=== PATIENT | male | born 1940 | race Caucasian/White ===

== ENCOUNTER 2023-10-28 21:08 | Inpatient (IN) | payer OTHER, MEDICARE ==
[2023-10-28 23:46] LABS: Protime INR 1.16
[2023-10-28 23:49] LABS: Albumin 3.2 g/dL (3.4-5.0); Bilirubin Total 0.7 mg/dL (0.2-1.0); Potassium 3.8 mEq/L (3.5-5.1); Protein, Total 9.2 g/dL (6.4-8.2)
[2023-10-28 23:54] LABS: Absolute Lymphocytes (CBC) 1.4 K/uL (0.7-4.9); Hematocrit 37.2 % (39.6-49.0); MCV 97.9 fL (80-100); Platelets 232 thou/uL (152-406)
--- NOTE | 2023-10-29 00:10 | ER ---
Nurse's Notes [facility] Name: Alexey Morales Age: 83 yrs Sex: Male : 1940 Arrival Date: 10/28/2023 Time: 21:08 Bed 15 Private MD: Diagnosis: Cellulitis of right upper limb Presentation: 10/28 21:21 Chief complaint: Patient states: he was scratched on his right arm by a cat on Friday ap3 10/25/23. patient was evaluated yesterday at an urgent care where he received Rocephin, TDAP and a prescription for doxycycline. patient has been unable to get the doxycycline due to it not being delivered to his home until tomorrow. Coronavirus screen: At this time, the client does not indicate any symptoms associated with coronavirus-19. Ebola Screen: No symptoms or risks identified at this time. Initial Sepsis Screen: Does the patient meet any 2 criteria? No. Patient's initial sepsis screen is negative. Does the patient have a suspected source of infection? No. Patient's initial sepsis screen is negative. Risk Assessment: Do you want to hurt yourself or someone else? Patient reports no desire to harm self or others. Onset of symptoms was October 25, 2023. 21:21 Method Of Arrival: Ambulatory ap3 21:21 Acuity: MURTAZA 3 ap3 Triage Assessment: 21:25 General: Appears in no apparent distress. Behavior is calm, cooperative, appropriate ap3 for age. Pain: Complains of pain in dorsal aspect of right forearm Pain currently is 7 out of 10 on a pain scale. Pain began gradually. Neuro: Level of Consciousness is awake, alert, obeys commands, Oriented to person, place, time, situation, Appropriate for age. Cardiovascular: Patient's skin is warm and dry. Respiratory: Airway is patent Respiratory effort is even, unlabored, Respiratory pattern is regular, symmetrical. Derm: Wound noted dorsal aspect of right forearm. 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 - Social history:: Smoking status: Patient denies any tobacco usage or history of. Screenin:26 Abuse screen: Denies threats or abuse. Nutritional screening: No deficits noted. ap3 Tuberculosis screening: No symptoms or risk factors identified. 10/29 00:00 [facility] ED Fall Risk Assessment (Adult) History of falling in the last 3 months, jw7 including since admission No falls in past 3 months (0 pts) Score/Fall Risk Level 0 - 2 = Low Risk Oriented to surroundings, Maintained a safe environment, Educated pt \T\ family on fall prevention, incl call for assistance when getting out of bed. Assessment: 00:00 General: Appears in no apparent distress. comfortable, Behavior is calm, cooperative. jw7 Pain: Complains of pain in right arm Pain does not radiate. Pain currently is 4 out of 10 on a pain scale. Quality of pain is described as aching, stinging, Pain began gradually, Is continuous. Neuro: Level of Consciousness is awake, alert, obeys commands, Oriented to person, place, time, situation. Cardiovascular: Capillary refill < 3 seconds Clubbing of nail beds is absent JVD is absent Patient's skin is warm and dry. Respiratory: Airway is patent Trachea midline Respiratory effort is even, unlabored, Respiratory pattern is regular, symmetrical. GI: No deficits noted. No signs and/or symptoms were reported involving the gastrointestinal system. : No deficits noted. No signs and/or symptoms were reported regarding the genitourinary system. EENT: No deficits noted. No signs and/or symptoms were reported regarding the EENT system. Derm: Skin is intact, is healthy with good turgor, Skin is dry, Skin is normal, Skin temperature is warm. Musculoskeletal: Circulation, motion, and sensation intact. Range of motion: intact in all extremities. 01:00 Reassessment: Patient appears in no apparent distress at this time. No changes from jw7 previously documented assessment. Patient and/or family updated on plan of care and expected duration. Pain level reassessed. Patient is alert, oriented x 3, equal unlabored respirations, skin warm/dry/pink. 02:00 General: Pt Admitted, See [facility] Documentation. jw7 Vital Signs: 10/28 21:21 BP 131 / 66; Pulse 95; Resp 17; Temp 98.7; Pulse Ox 98% on R/A; Weight 100.7 kg; Height ap3 5 ft. 10 in. ; Pain 7/; 10/29 01:00 BP 118 / 67; Pulse 72; Resp 16 S; Pulse Ox 97% on R/A; jw7 02:00 BP 116 / 67; Pulse 70; Resp 17 S; Pulse Ox 96% on R/A; jw7 10/28 21:21 Body Mass Index 31.85 (100.70 kg, 177.8 cm) ap3 10/28 21:21 Pain Scale: Adult ap3 ED Course: 10/28 21:11 Patient arrived in ED. kj1 21:22 Cami Licona FNP-C [facility]. kb 21:22 Montrell De La Torre MD is Attending Physician. kb 21:23 Triage completed. ap3 21:26 Arm band placed on left wrist. ap3 23:22 Dottie Florence, RN is Primary Nurse. jw7 23:24 Patient has correct armband on for positive identification. Bed in low position. Call ap3 light in reach. Side rails up X 1. 23:24 Inserted saline lock: 22 gauge in left antecubital area, using aseptic technique. Blood ap3 collected. 23:24 Initial lab(s) drawn, by me, sent to lab. First set of blood cultures drawn by me. ap3 23:24 CBC with Diff Sent. ap3 23:24 CMP Sent. ap3 23:24 Lactate w/ 2H reflex if indic. Sent. ap3 23:24 Protime (+inr) Sent. ap3 23:24 Ptt, Activated Sent. ap3 10/29 00:10 Meng Duncan MD is Hospitalizing Provider. kb 01:57 Inserted saline lock: 22 gauge in left forearm, using aseptic technique. jw7 01:58 Second set of blood cultures drawn. jw7 03:35 Provided Education on: need for admit. jw7 03:35 No provider procedures requiring assistance completed. Patient admitted, IV remains in jw7 place. Administered Medications: :57 Drug: vancoMYCIN IVPB 1 grams IVPB once over 2 hrs Route: IVPB; Infused Over: 2 hrs; jw7 Site: left forearm; Medication: 03:35 VIS not applicable for this client. jw7 Outcome: 00:10 Decision to Hospitalize by Provider. kb 03:35 Admitted to ER Hold. Please see [facility] for further documentation. jw7 03:35 Condition: stable 03:35 Instructed on the need for admit, Demonstrated understanding of instructions, 11:34 Patient left the ED. db Signatures: Cami Licona, Cheri Veliz RN RN ap3 Jasmin Licona kj1 Dottie Florence RN RN jw7 Makayla Harrington RN RN db
--- NOTE | 2023-10-29 00:10 | EDPHYS ---
Physician Documentation [facility] Name: Alexey Moralse Age: 83 yrs Sex: Male : 1940 Arrival Date: 10/28/2023 Time: 21:08 Bed 15 Private MD: ED Physician Montrell De La Torre HPI: 10/28 22:16 This 83 yrs old Male presents to ER via Ambulatory with complaints of CAT SCRATCH kb POSSIBLE INFECTION. 22:16 Patient is a 83-year-old male who presents for redness and swelling to right forearm to kb hand. States he was scratched by cat 4 days ago and the symptoms started after that. Reports low-grade fever prior to arrival.. 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 - Social history:: Smoking status: Patient denies any tobacco usage or history of. ROS: 22:16 Respiratory: Negative for shortness of breath, cough, wheezing, and pleuritic chest kb pain, 22:16 Constitutional: Positive for fever, 22:16 Skin: Positive for erythema, swelling, of the right hand and right forearm, 22:16 All other systems are negative, Exam: 22:16 Constitutional: This is a well developed, well nourished patient who is awake, alert, kb and in no acute distress. Head/Face: Normocephalic, atraumatic. ENT: Moist Mucous membranes Cardiovascular: Regular rate Respiratory: Respirations even and unlabored. No increased work of breathing. Talking in full sentences MS/ Extremity: Pulses equal, no cyanosis. Neurovascular intact. Full, normal range of motion. Neuro: Awake and alert, GCS 15, oriented to person, place, time, and situation. Moves all extremities. Normal gait. 22:16 Skin: cellulitis, that is moderate, on the right forearm and right hand, 10/29 03:13 ECG was reviewed by the Attending Physician. EKG at 0 220 sinus rhythm with sp4 first-degree AV block left axis deviation. Vital Signs: 10/28 21:21 BP 131 / 66; Pulse 95; Resp 17; Temp 98.7; Pulse Ox 98% on R/A; Weight 100.7 kg; Height ap3 5 ft. 10 in. ; Pain 7/10; 10/29 01:00 BP 118 / 67; Pulse 72; Resp 16 S; Pulse Ox 97% on R/A; jw7 02:00 BP 116 / 67; Pulse 70; Resp 17 S; Pulse Ox 96% on R/A; jw7 10/28 21:21 Body Mass Index 31.85 (100.70 kg, 177.8 cm) ap3 10/28 21:21 Pain Scale: Adult ap3 MDM: 10/28 21:22 Patient medically screened. kb 22:16 Differential diagnosis: abscess, allergic reaction, cellulitis, insect bite. Data kb reviewed: vital signs, nurses notes. 10/29 00:09 Consideration of Admission/Observation Patient was admitted/placed on observation. kb Escalation of care including admission/observation considered. Management of patient was discussed with the following: Hospitalist: Dr Duncan accepts pt for admission. Counseling: I had a detailed discussion with the patient and/or guardian regarding the historical points, exam findings, and any diagnostic results supporting the discharge/admit diagnosis, the need for outpatient follow up, a family practitioner. 10/28 21:27 Order name: Blood Culture Adult (2) kb 10/28 21:27 Order name: CBC with Diff; Complete Time: 00:07 kb 10/28 21:27 Order name: CMP; Complete Time: 23:52 kb 10/28 21:27 Order name: Lactate w/ 2H reflex if indic.; Complete Time: 23:52 kb 10/28 21:27 Order name: Protime (+inr); Complete Time: 23:48 kb 10/28 21:27 Order name: Ptt, Activated; Complete Time: 23:48 kb 10/29 00:25 Order name: Basic Metabolic Panel EDMS 10/29 00:25 Order name: Basic Metabolic Panel EDMS 10/29 00:25 Order name: CBC with Automated Diff EDMS 10/29 00:25 Order name: CBC with Automated Diff EDMS 10/28 21:27 Order name: EKG; Complete Time: 21:28 kb 10/28 21:27 Order name: Accucheck; Complete Time: 00:57 kb 10/28 21:27 Order name: Cardiac monitoring; Complete Time: 02:28 kb 10/28 21:27 Order name: EKG - Nurse/Tech; Complete Time: 02:28 kb 10/28 21:27 Order name: IV Saline Lock - Large Bore; Complete Time: 23:23 kb 10/28 21:27 Order name: Labs collected and sent; Complete Time: 23:23 kb 10/28 21:27 Order name: O2 Per Protocol; Complete Time: 00:57 kb 10/28 21:27 Order name: O2 Sat Monitoring; Complete Time: 00:57 kb 10/28 21:27 Order name: Vital Signs; Complete Time: 01:56 kb EC:13 Rate is 73 beats/min. Rhythm is regular, Sinus Rhythm. Left axis deviation noted. IN sp4 interval is prolonged. QRS interval is normal. QT interval is normal. No Q waves. T waves are Normal. No ST changes noted. Clinical impression: No evidence of ischemia. Interpreted by me. Reviewed by me. Administered Medications: :57 Drug: vancoMYCIN IVPB 1 grams IVPB once over 2 hrs Route: IVPB; Infused Over: 2 hrs; jw7 Site: left forearm; Disposition: 01:48 Co-signature as Attending Physician, Montrell De La Torre MD I agree with the assessment sp4 and plan of care. I reviewed the patient's care provided by Advanced Practice Provider \T\ agree w/ the diagnosis \T\ care plan. I personally saw the pt \T\ performed a substantive portion of the visit, incldng all aspects of the (History/Exam/Medical Decision Making). Disposition Summary: 10/29/23 00:10 Hospitalization Ordered Notes: Hospitalization Status: Inpatient Admission kb Provider: Meng Duncan Condition: Stable kb Problem: new kb Symptoms: are unchanged kb Bed/Room Type: Standard kb Location: Telemetry/MedSurg (Inpatient)(10/29/23 11:05) bd Room Assignment: 407(10/29/23 11:05) bd Diagnosis - Cellulitis of right upper limb kb Forms: - Medication Reconciliation Form kb - SBAR form kb - Leadership Thank You Letter kb Signatures: Dispatcher [employer] Cami Tello FNP-C FNP-Ckb Dirrim, Barbara bd Prokisch, Amanda RN RN ap3 Dottie Florence RN RN jw7 Barb Weinstein rv1 Montrell De La Torre MD MD sp4 Corrections: (The following items were deleted from the chart) 02:16 00:10 Telemetry/MedSurg (Inpatient) kb rv1 02:16 00:10 kb rv1 11:05 02:16 [facility] ER HOLD rv1 bd 11: 02:16 ERHOLD- rv1 bd
[2023-10-29] MEDS ORDERED: ACETAMINOPHEN 325 MG TABLET PO PRN (00:19)
[2023-10-29] MEDS ORDERED: ONDANSETRON 4 MG/2 ML VIAL IV PRN (00:19)
[2023-10-29] MEDS ORDERED: HYDROCODONE/APAP 5/325 MG TAB PO PRN (00:23)
--- NOTE | 2023-10-29 00:25 | P.HP ---
Certification for Inpatient Patient admitted to: Inpatient With expected LOS: >2 Midnights Practitioner: I am a practitioner with admitting privileges, knowledge of patient current condition, hospital course, and medical plan of care. Services: Services provided to patient in accordance with Admission requirements found in Title 42 Section 412.3 of the Code of Federal Regulations Patient History Date of Service: 10/29/23 Reason for admission: Cellulitis of the right forearm and hand after cat scratch. History of Present Illness: 83-year-old male patient with medical history significant for cellulitis, hypertension, ocular myasthenia gravis and recent cat scratch in the right upper extremity. She reported that she had cat scratch and subsequently began to have hyperemia and pain in the right upper extremity. Hyperemia spread into the hand from the mid forearm and into the elbow causing significant pain and discomfort. He had gone to the emergency room a day prior and he was given parenteral antibiotic without much relief. He came to the ED for evaluation and he was found to be significantly hyperemic in the right upper extremity. He is admitted for inpatient care due to poor response to oral antibiotic therapy on outpatient basis. Allergies No Known Allergies Allergy (Unverified 09/23/17 20:08) Home Medications: Aspirin [Low Dose Aspirin EC] 81 mg PO DAILY 03/19/17 Azelastine HCl 205.5 mcg NS DAILY 03/19/17 Fluticasone [Flonase 50MCG Nasal [place]*] 2 sprays NS DAILY 03/19/17 Levothyroxine [Synthroid*] 175 mcg PO [id number] 03/19/17 Lisinopril/Hydrochlorothiazide [Lisinopril-Hctz 20-12.5 mg Tab] 1 each PO DAILY 03/19/17 Meloxicam 15 mg PO DAILY 03/19/17 Hydrocodone 10/APAP 325 [[place] 10/325*] 1 tab PO Q6H PRN 09/23/17 pyRIDostigmine bromide [Mestinon*] 60 mg PO TID 09/23/17 Aspirin [Aspirin EC 81 MG] 81 mg PO DAILY #30 tablet. 09/24/17 Atorvastatin Calcium [Lipitor] 20 mg PO BEDTIME #30 tab 09/24/17 predniSONE [Prednisone] 40 mg PO DAILY #10 tablet 09/24/17 - Past Medical/Surgical History Diabetic: No -: Osteoarthritis -: HTN -: Mysthenia occular -: Kidney stones -: L. knee 2016 -: R. hip replacement -: Nasal cauterization r/t bleeding -: Luiza 1999 - Social History Alcohol use: Yes CD- Drugs: No Caffeine use: Yes Review of Systems General: Malaise Eyes: Unremarkable ENT: Unremarkable Respiratory: Unremarkable Cardiovascular: Unremarkable Gastrointestinal: Unremarkable Genitourinary: Unremarkable Musculoskeletal: Arm Pain, Hand Pain Integumentary: Rash, As per HPI Neurological: Unremarkable Lymphatics: Unremarkable Physical Examination - Physical Exam General: Alert, Oriented x3 HEENT: Atraumatic Neck: Supple Respiratory: Normal air movement Cardiovascular: Regular rate/rhythm, Normal S1 S2 Gastrointestinal: Soft and benign Musculoskeletal: Swelling, Erythema, Tenderness, Warmth Integumentary: Skin lesion Neurological: Normal speech, Normal strength at 5/5 x4 extr - Studies Laboratory Data (last 24 hrs) 10/28/23 10/28/23 10/28/23 23:19 23:19 23:19 WBC 19.90 H Hgb 12.7 L Hct 37.2 L Plt Count 232 PT 12.7 H INR 1.16 APTT 29.0 Sodium 134 L Potassium 3.8 BUN 31 H Creatinine 1.36 H Glucose 114 H Total Bilirubin 0.7 AST 16 ALT 16 Alkaline Phosphatase 64 Assessment and Plan - Plan Cellulitis of the right upper extremity secondary to cat scratch. Hyperemia and inflammation spread in the right upper extremity Will start Unasyn for management. Will obtain cultures and monitor for adjustment As needed Tylenol for pain control with additional [place] as needed. Will monitor area of hyperemia closely. Hypertension: Monitor vital signs per unit protocol and continue antihypertensive medications. Ocular myasthenia: Will continue outpatient medication. Osteoarthritis: Continue pain control as needed. Prophylaxis: Lovenox for DVT prophylaxis CODE STATUS: Full code Disposition: will continue management of cellulitis and discharge him once he is deemed clinically stable. - Advance Directives Does patient have a Living Will: No Does patient have a Durable POA for Healthcare: No
[2023-10-29] MEDS ORDERED: VANCOMYCIN 1 GM/VIAL ONE (01:09)
[2023-10-29] MEDS ORDERED: NA CHLORIDE 0.9% 250 ML ONE (01:09)
[2023-10-29 03:17] VITALS: BMI 31.8
[2023-10-29] MEDS: NA CHLORIDE 0.9% 1,000 ML IV SCH (04:02)
[2023-10-29] MEDS ORDERED: NA CHLORIDE 0.9% 1,000 ML ONE (04:03)
[2023-10-29] MEDS: AMPICILLIN/SULBACT 1.5 GM in NA CHLORIDE 0.9% 100 ML IVPB SCH (06:00)
[2023-10-29] MEDS ORDERED: AMPICILLIN/SULBACT 1.5GM VIAL ONE (06:22)
[2023-10-29] MEDS ORDERED: NA CHLORIDE 0.9% 100 ML ONE (06:23)
[2023-10-29] MEDS ORDERED: ENOXAPARIN 40 MG/0.4 ML SQ ONE (08:22)
[2023-10-29] MEDS: ENOXAPARIN 40 MG/0.4 ML SQ SCH (09:00)
--- NOTE | 2023-10-29 15:30 | P.PN ---
Date of Service: 10/29/23 Patient seen and examined. He has no new complain, Erythema and swelling of right forearm noted. Cellulitis secondary to cat scratch Continue Unasyn. Added oral Bactrim. Analgesics as needed. Monitor CBC to follow leukocytosis.
--- NOTE | 2023-10-29 16:39 | EKG ---
Test Date: 2023-10-29 Test Time: 02:20:21 Hose Handler: STEPH MEASUREMENT RESULTS: Intervals: Rate: 73 UT: 252 QRSD: 126 QT: 392 QTc: 431 [place]: P: 68 UT: 252 QRS: -70 T: 80 INTERPRETIVE STATEMENTS: Sinus rhythm with 1st degree AV block Left axis deviation Nonspecific intraventricular block Abnormal ECG No previous ECG available for comparison Electronically Signed On 10-29-23 16:39:04 SHRIMP PEELING MACHINE OPERATOR by Johnathon Manzo
[2023-10-29] MEDS: SMZ./TMP. 800/160 MG TABLET PO SCH (20:33)
[2023-10-30 05:21] LABS: Absolute Lymphocytes (CBC) 1.1 K/uL (0.7-4.9); Hematocrit 30.8 % (39.6-49.0); Lymphocytes % 13.8 % (15.3-44.8); MCV 98.2 fL (80-100); MPV 7.9 fL (7.6-11.3); Platelets 194 thou/uL (152-406); RBC Red Blood Cell Count 3.14 M/uL (4.33-5.43)
[2023-10-30 05:30] LABS: Potassium 3.9 mEq/L (3.5-5.1)
[2023-10-30] MEDS ORDERED: HYDROCODONE/APAP 7.5/325 MG TAB PO PRN (14:43)
--- NOTE | 2023-10-30 14:51 | P.PN ---
Subjective Date of Service: 10/30/23 Chief Complaint: Cellulitis of the right forearm and hand after cat scratch. Patient reports significant improvement in his right forearm redness and swelling. He denies any fever. Physical Examination - Vital Signs Temperature: 98 F Blood Pressure: 124/62 Pulse: 67 Respirations: 18 Pulse Ox (%): 98 Assessment And Plan - Plan Physical examination: General: Alert and oriented x3, NAD, HEENT: Conjunctiva not pale, anicteric sclera Neck: Supple, no elevated JVD Heart: Heart sounds 1 and 2 normal, regular rhythm, normal rate, no pedal edema Lungs: Clear to auscultation bilaterally, adequate breath sounds bilaterally, no rhonchi or crackles. Abdomen: Soft, nondistended, nontender, normal bowel sounds. Extremities: Right forearm and hand mildly swollen, mild erythema-dorsum of right hand and forearm. Skin: Normal skin turgor, no nodules or ulcers. Neuro: No focal motor deficit. Normal speech. Psychiatry: Normal mood, no agitation. Assessment and plan: Cat scratch/cat bite induced cellulitis Patient's arm redness and swelling responded significantly to current antibiotics. Continue IV Unasyn and oral Bactrim for 1 more day. Pain management as needed. Anticipating discharge in a.m. with Bactrim and Augmentin. Hypertension Continue home antihypertensive Ocular myasthenia Continue home medications Osteoarthritis: Analgesic as needed. DVT Prophylaxis: Lovenox.
[2023-10-30] MEDS: AZATHIOPRINE 50 MG TABLET PO SCH (15:00)
[2023-10-30] MEDS: PYRIDOSTIGMINE 60 MG TABLET PO SCH (15:00)
[2023-10-30] MEDS: predniSONE 20 MG TAB PO SCH (15:00)
[2023-10-30 20:13] VITALS: O2SAT 94
[2023-10-31] MEDS: LEVOTHYROXINE SOD 0.125 MG TAB PO SCH (05:39)
[2023-10-31 08:28] VITALS: BP 126/73; TEMP 97.5
--- NOTE | 2023-10-31 08:56 | P.DS ---
Admission Date: 10/29/23 Discharge Date: 10/31/23 Disposition: ROUTINE DISCHARGE Discharge Condition: FAIR Reason for Admission: Cellulitis of the right forearm and hand after cat scratch. Brief History of Present Illness: 83-year-old male patient with medical history significant for hypertension, ocular myasthenia gravis presented to the emergency department due to cat scratch in the right upper extremity. He reported that she had cat scratch and subsequently began to have redness, swelling and pain in the in the right forearm. The redness spread into the hand from the mid forearm and into the elbow causing significant pain and discomfort. He had gone to the emergency room a day prior and he was given antibiotic which she took without much relief, and symptoms got worse. He could not remember the name of the antibiotics. He wa admitted for inpatient care due to poor response to oral antibiotic therapy. Hospital Course: Patient admitted to the medical floor and the following medical problems addressed: Assessment and plan Cat scratch/cat bite induced cellulitis Patient treated with IV Unasyn and oral Bactrim Patient's arm redness and swelling responded well to the antibiotics and significantly improved. Pain resolved. Patient is discharged with Bactrim and Augmentin. Hypertension Continued home antihypertensive Ocular myasthenia Continued home medications Osteoarthritis: Managed with analgesic as needed. Vital Signs/Physical Exam: Temp Pulse Resp BP Pulse Ox 97.5 F 59 18 126/73 98 10/31/23 08:00 10/31/23 08:00 10/31/23 08:00 10/31/23 08:00 10/31/23 08:00 General: Alert, In no apparent distress, Oriented x3 HEENT: Mucous membr. moist/pink Neck: JVD not distended Respiratory: Clear to auscultation bilaterally, Normal air movement Cardiovascular: No edema, Regular rate/rhythm, Normal S1 S2 Gastrointestinal: Normal bowel sounds, Soft and benign, Non-distended, No tenderness Musculoskeletal: No swelling Integumentary: Erythema (Mild erythema dorsum of hand) Neurological: Normal strength at 5/5 x4 extr Laboratory Data at Discharge: WBC 7.70 thou/uL (4.3-10.9) 10/30/23 05:04 Hgb 10.7 g/dL (13.6-17.9) L 10/30/23 05:04 Hct 30.8 % (39.6-49.0) L 10/30/23 05:04 Plt Count 194 thou/uL (152-406) 10/30/23 05:04 PT 12.7 SECONDS (9.5-12.5) H 10/28/23 23:19 INR 1.16 10/28/23 23:19 APTT 29.0 SECONDS (24.3-36.9) 10/28/23 23:19 Sodium 138 mEq/L (136-145) 10/30/23 05:04 Potassium 3.9 mEq/L (3.5-5.1) 10/30/23 05:04 BUN 23 mg/dL (7-18) H 10/30/23 05:04 Creatinine 1.00 mg/dL (0.70-1.30) 10/30/23 05:04 Glucose 91 mg/dL (74-106) 10/30/23 05:04 Total Bilirubin 0.7 mg/dL (0.2-1.0) 10/28/23 23:19 AST 16 U/L (15-37) 10/28/23 23:19 ALT 16 U/L (16-61) 10/28/23 23:19 Alkaline Phosphatase 64 U/L (45-117) 10/28/23 23:19 Home Medications: Levothyroxine [Synthroid*] 125 mcg PO [id number] 03/19/17 Lisinopril/Hydrochlorothiazide [Lisinopril-Hctz 20-12.5 mg Tab] 20 mg PO DAILY 03/19/17 pyRIDostigmine bromide [Mestinon*] 60 mg PO QID 09/23/17 Hydrocodone Bit/Acetaminophen [[place] 7.5-325 Tablet] 1 tab PO BIDP PRN 10/29/23 azaTHIOprine [Azathioprine] 1 tab PO DAILY 10/29/23 predniSONE [Prednisone] 2 mg PO DAILY 10/29/23 Amox/Clavulanate [Augmentin 875-125 Tab] 1 each PO BID #16 tab 10/31/23 Smz./Tmp. [Bactrim Ds 800 MG/160 MG*] 1 tab PO BID #18 tab 10/31/23 New Medications: Amox/Clavulanate [Augmentin 875-125 Tab] 1 each PO BID #16 tab Smz./Tmp. [Bactrim Ds 800 MG/160 MG*] 1 tab PO BID #18 tab Diet: AHA Activity: Ad daniel Followup: Walter Turner MD [Primary Care Provider] - Time spent managing pt's care (in minutes): 35
[2023-10-31] MEDS: hydroCHLOROthiazide 12.5 MG CAP PO SCH (09:00)
[2023-10-31] MEDS: lisinopriL 20 MG TAB PO SCH (09:00)
[2023-10-31] MEDS ORDERED: HOME MED 1 EA UNK (Lisinopril/Hydrochlorothiazide [Lisinopril-Hctz 20-12.5 Mg Tab] Tablet) PO SCH (09:00)
== END 2023-10-31 12:04 | disposition home or self-care (01) | DRG 603 ==
LOC: ER 21:08 → ERHOLD 10-29 00:36 → 4TH 10-29 11:12
PROVIDERS: ADMIT Internal Medicine Nephrology; ATTEND Internal Medicine
DX: L03.113 Cellulitis of right upper limb (principal); I10 Essential (primary) hypertension; M19.90 Unspecified osteoarthritis, unspecified site; G70.89 Other specified myoneural disorders; R68.89 Other general symptoms and signs; Z90.49 Acquired absence of other specified parts of digestive tract; Z79.52 Long term (current) use of systemic steroids; Z79.82 Long term (current) use of aspirin; Z79.890 Hormone replacement therapy; Z79.899 Other long term (current) drug therapy; Z96.652 Presence of left artificial knee joint; Z96.641 Presence of right artificial hip joint; W55.03XA Scratched by cat, initial encounter; Y93.9 Activity, unspecified; Y92.9 Unspecified place or not applicable; Y99.9 Unspecified external cause status
CPT/HCPCS: 36415; 80048; 80053; 83605; 85025; 85610; 85730; 87040; 93005; J0295; J1650; J7030; J7050; J7500; J7512